=== PATIENT | female | born 1970 | race Two or more races ===

== ENCOUNTER 2025-08-26 08:32 | Day surgery (SDC) | payer MEDICAID ==
[2025-08-24 14:44] LABS: Hematocrit 38.8 % (36.0-46.0); Hemoglobin 13.4 g/dL (12.2-16.2); Mean Corpuscular Hemoglobin 29.5 pg (28.0-32.0); Mean Corpuscular Volume 85.5 fL (80.0-100.0); Nucleated Red Blood Cells % 0.0 %
[2025-08-24 14:56] LABS: INR 0.93 (0.9-1.15); Partial Thromboplastin Time 26.5 SEC (24.5-34.5); Prothrombin Time 9.9 sec (9.3-11.8)
[2025-08-24 15:12] LABS: Alanine Aminotransferase 19 U/L (7-40); Albumin 4.5 g/dL (3.2-4.8); Anion Gap 9 (5-15); BUN/Creatinine Ratio 28.8 (10.0-20.0); Bilirubin, Total 0.3 mg/dL (0.2-1.0); Blood Urea Nitrogen 21 mg/dL (9-23); Calcium 9.5 mg/dL (8.7-10.4); Carbon Dioxide 30 mmol/L (20-31); Chloride 101 mmol/L (98-107); Glucose 93 mg/dL (74-106); Potassium 3.8 mmol/L (3.5-5.1); Sodium 140 mmol/L (136-145); Total Protein 7.6 g/dL (5.7-8.2)
[2025-08-24 15:14] LABS: Alkaline Phosphatase 131 U/L (46-116)
[2025-08-24 15:44] LABS: Urine Protein, UAD Negative (Negative)
[~2025-08-26] VITALS: Ht 175.3 cm; Wt 117.0 kg
[~2025-08-26 08:32] MED LIST: ATOR10TA52 PO; CYCL-837 PO; EMPA1TAB PO; HYDR-4902 PO; HYDR10SY18 PO; INSLANTI SC; METF-372 PO; TIRZ2.5I SC
[2025-08-26] MEDS ORDERED: fentaNYL CITRATE 100 MCG/2 ML VL ONE (09:54)
[2025-08-26] MEDS ORDERED: MIDAZOLAM HCL 2MG/2ML 2ml VIAL (1mg/ml) ONE (09:54)
[2025-08-26] MEDS: LIDOCAINE VISCOUS 2% 15ML UD ONE (10:00)
[2025-08-26] MEDS ORDERED: PROPOFOL 10 MG/ML 20 ML IV ONE (10:23)
--- NOTE | 2025-08-26 10:27 | DVHHP2 ---
GI H&P Pre-Op Assessment Date: 08/26/25 Chief complaint: anemia and evaluation for bariatric surgery HPI: per clinic note Past medical history: per clinic note Past surgical history: per clinic note Family history: per clinic note Physical exam: General: NAD, AAOX3 HEENT: PERRL, no scleral icterus, normal hearing, gums without lesions or bleeding, oropharynx clear without erythema or exudate. Neck: Supple without enlargement of the thyroid, or lymphadenopathy. Chest: Normal size and shape, no tenderness, lung womack clear to auscultation and percussion, nonlabored breathing. Heart: RRR, no murmur Abdomen: non-distended, no tenderness to palpation, +BS, no hepatosplenomegaly Extremities: no edema Neurological: CN II-XII intact, sensation intact in all extremities, 5+ strength in all extremities Skin: No rashes, No jaundice Assessment: - anemia and evaluation for bariatric surgery Plan: - EGD - Colonoscopy - Risks (bleeding, infection, perforation, reaction to sedation medications and cardiopulmonary arrest) and benefit of the procedure were explained to patient. Patient agrees to undergo the procedure. ABILIO PIERRE MD Aug 26, 2025 10:27
--- NOTE | 2025-08-26 10:29 | DVHOP2 ---
Operative Report DATE OF OPERATION: 08/26/25 PROCEDURE: Upper Endoscopy. PREOPERATIVE INDICATION: The patient is a 55 -year-old female undergoing endoscopy for anemia and evaluation for bariatric surgery. POSTOPERATIVE DIAGNOSES: 1. Normal EGD PROCEDURE PERFORMED BY: Miguel Call SCOPE: Olympus videoendoscope. ASA CLASS: 3 PREOPERATIVE MEDICATIONS: MAC with Dr Roberts PROCEDURE IN DETAIL: After obtaining an informed consent, the patient was placed on her back. The patient was then sedated by Dr roberts. A bite block was placed between her teeth. The endoscope was then passed through the oropharynx, into the esophagus, and through the stomach and pylorus up to the second and third part of the duodenum. The duodenum was normal in appearance. The stomach was normal in appearance. The GE junction was normal in appearance at 37 cm. The esophagus was normal in appearance. The endoscope was then withdrawn. The patient tolerated the procedure well without difficulty. COMPLICATIONS : None SPECIMENS: None DISPOSITION: D/C to home PLAN: 1. Since the EGD was normal, patient should be able to undergo bariatric surgery MIGUEL CALL MD Aug 26, 2025 10:29
[2025-08-26 10:30] VITALS: PULSE 64; RESP 11; TEMP 98.4; O2SAT 99
--- NOTE | 2025-08-26 10:30 | DVHOP2 ---
Operative Report DATE OF OPERATION: 08/26/25 PROCEDURE: Colonoscopy. PREOPERATIVE INDICATION: The patient is a 55 -year-old female undergoing colonoscopy for anemia. POSTOPERATIVE DIAGNOSES: 1. 2 mm rectosigmoid polyp was removed with cold forceps. 2. Few diverticulosis in the left colon. PROCEDURE PERFORMED BY: Miguel Call M.D. SCOPE: Olympus videocolonoscope. ASA CLASS: 3 PREOPERATIVE MEDICATIONS: MAC with Dr roberts PROCEDURE IN DETAIL: After obtaining an informed consent, the patient was placed on left lateral decubitus position. She was then sedated by Dr Roberts. A rectal examination was performed that was normal. The colonoscope was then passed through the anus into the rectosigmoid and through the descending, transverse, and ascending colon up to the cecum with visualization of the appendiceal orifice, base of the cecum and the ileocecal valve. 2 mm rectosigmoid polyp was removed with cold forceps. There was a few diverticulosis in the left colon. The colonoscope was then withdrawn. The patient tolerated the procedure well without difficulty. WITHDRAWAL TIME: 6 minutes QUALITY OF THE PREP: [place] Bowel Prep score: 6 COMPLICATIONS : None SPECIMENS: Colon polyp DISPOSITION: D/C to home PLAN: 1. Repeat colonoscopy base on biopsy result MIGUEL CALL MD Aug 26, 2025 10:30
--- NOTE | 2025-08-26 10:31 | DVHDS2 ---
Physician Discharge Progress N Final Diagnosis: Normal EGD Colon polyp and diverticulosis Operations or Procedures: Operations or Procedures EGD Colonoscopy with cold biopsy polypectomy Condition on Discharge: Good Disposition: Home Discharge Instructions: Diet: Regular Activity: No Restrictions, As Tolerated Medications: Resume previous home medications Follow Up Care: Discharge Statement: "Patient was advised to return to the ER or call 911 if any headaches, dizziness, shortness of breath, chest pain, abdominal pain, bleeding, fevers, or worsening of medical condition. Patient was counseled about treatment plan, medications, possible side effects, patientverbalized understanding. All questions were answered to the best of my ability. This discharge took greater then 30 minutes in planning, reviewing documentation, counseling the patient, and discussing with other team members." ABILIO PIERRE MD Aug 26, 2025 10:31
[2025-08-26 11:00] VITALS: BP 109/63; PULSE 82; RESP 14; O2SAT 97
== END 2025-08-26 11:05 | disposition home or self-care (01) ==
LOC: GI 08:32
PROVIDERS: ATTEND Internal Medicine Gastroenterology
DX: D64.9 Anemia, unspecified (principal); K63.5 Polyp of colon; K57.30 Diverticulosis of large intestine without perforation or abscess without bleeding; G89.29 Other chronic pain; I10 Essential (primary) hypertension; I25.10 Atherosclerotic heart disease of native coronary artery without angina pectoris; E11.9 Type 2 diabetes mellitus without complications; E03.9 Hypothyroidism, unspecified; E78.00 Pure hypercholesterolemia, unspecified; G47.30 Sleep apnea, unspecified; E66.01 Morbid (severe) obesity due to excess calories; Z68.42 Body mass index [BMI] 45.0-49.9, adult; Z79.899 Other long term (current) drug therapy; Z86.73 Personal history of transient ischemic attack (TIA), and cerebral infarction without residual deficits; Z98.890 Other specified postprocedural states
CPT/HCPCS: 36415; 43235; 45380; 80053; 81001; 82962; 85025; 85610; 85730; 88305; J1100; J2250; J2704; J3010